=== PATIENT | female | born 1990 | race Caucasian/White ===

== ENCOUNTER 2017-11-02 14:59 | Emergency (ER) | payer OTHER ==
[~2017-11-02] VITALS: Ht 167.6 cm; Wt 81.6 kg
--- NOTE | 2017-11-02 15:19 | NUR ---
Dr Martin at the bedside for MSE.
[2017-11-02] MEDS ORDERED: HYDROCODONE/APAP 10-325 MG TABLET PO ONE (15:30)
[2017-11-02] MEDS ORDERED: HYDROCODONE/APAP 10-325 MG TABLET ONE (15:30)
[2017-11-02 15:36] VITALS: BP 141/89
--- NOTE | 2017-11-02 15:38 | NUR ---
Patient discharged to home in stable conditon. Written and verbal after care instructions given. Patient verbalizes understanding of instructions. Pt Left ER w/ steady gait accompained by family.
== END 2017-11-02 15:38 | disposition home or self-care (01) ==
LOC: ER 15:02
DX: G89.18 Other acute postprocedural pain (principal); Z90.89 Acquired absence of other organs; Z91.012 Allergy to eggs; Z90.49 Acquired absence of other specified parts of digestive tract
CPT/HCPCS: A4663